=== PATIENT | male | born 1965 | race Caucasian/White ===

== ENCOUNTER → 2016-04-02 | Outpatient (CLI) | payer MEDICAID ==
[2016-04-02 09:05] LABS: BUN 7 mg/dL (7-18); GFR (ESTIMATED) 119 ML/MIN (>60)
[2016-04-03 08:39] LABS: HBsAg Screen Negative (Negative); Hep A Ab, IgM Negative (Negative); Hep B Core Ab, IgM Negative (Negative); Hep C Virus Ab 0.1 (0.0-0.9)
== END ==
LOC: LAB 07:53
PROVIDERS: Physician Assistant
DX: R79.89 Other specified abnormal findings of blood chemistry (principal); E78.2 Mixed hyperlipidemia

== ENCOUNTER → 2017-02-05 | Outpatient (CLI) | payer MEDICAID ==
--- NOTE | 2017-02-05 13:31 | RADIOLOGY REPORT PS360 ---
[id number] VIEWS HISTORY: RT RIB PAIN ORDERING PHYSICIAN: Mulugeta Alvarenga MD PATIENT AGE: 51 years COMPARISON: None FINDINGS: A frontal view of the chest shows no acute finding. There is hyperinflation with hyperlucency consistent with COPD Multiple views of the right ribs were obtained. No fracture or dislocation. No lytic or blastic change. IMPRESSION: Negative RIBS. If pain persists, consider follow-up exam in 7-[address] with 3-D reformats.
== END ==
LOC: RAD 12:17
DX: R07.81 Pleurodynia (principal)